=== PATIENT | female | born 1975 ===

== ENCOUNTER 2018-05-02 15:02 | Emergency (ER) | payer SELFPAY ==
[~2018-05-02] VITALS: Ht 167.6 cm; Wt 81.7 kg
[2018-05-02] MEDS ORDERED: Tobrex5 ML BOTHEYES (16:55)
== END 2018-05-02 17:05 | disposition home or self-care (01) ==
LOC: ER 15:02
DX: T60.1X1A Toxic effect of halogenated insecticides, accidental (unintentional), initial encounter (principal); H10.213 Acute toxic conjunctivitis, bilateral; S05.02XA Injury of conjunctiva and corneal abrasion without foreign body, left eye, initial encounter; X58.XXXA Exposure to other specified factors, initial encounter; Z88.0 Allergy status to penicillin; Z88.8 Allergy status to other drugs, medicaments and biological substances; Z91.012 Allergy to eggs; Z88.5 Allergy status to narcotic agent
CPT/HCPCS: 96360; 99283-25; J7030